=== PATIENT | female | born 1995 | race African-American/Black ===

== ENCOUNTER → 2020-10-30 | Outpatient (CLI) | payer OTHER ==
--- NOTE | 2020-10-30 17:33 | REP ---
INDICATION: DIARRHEA, GENERALIZED ABD PAIN. COMPARISON: None. TECHNIQUE: Supine and erect views of the abdomen, PA view chest. FINDINGS: There is no evidence of free intraperitoneal air. There is no evidence of bowel obstruction. Mild air is scattered throughout the GI tract diffusely. No dilated bowel loops are seen. There is mild diffuse fecal material throughout the colon. A phlebolith is seen on each side of the pelvis. The visualized osseous structures are unremarkable. No infiltrate is seen in either lung. The heart mediastinum are within normal limits. IMPRESSION: Negative abdominal series. <Electronically signed by Benton Neely > 10/30/20 [id number]
[2020-10-30 19:45] LABS: BASO % 0.3 % (0.0-1.0); HEMATOCRIT 41.1 % (36.0-47.0); HEMOGLOBIN 13.2 g/dl (12.0-15.5); LYMPH # 2.4 10^3/uL (1.5-5.0); LYMPH % 17.6 % (24.0-44.0); MEAN CORPUSCULAR HEMOGLOBIN 31.2 pg (27.0-33.0); MEAN CORPUSCULAR HGB CONC 32.1 g/dl (32.0-36.5); MEAN CORPUSCULAR VOLUME 97.2 fl (80.0-96.0); MONO # 0.7 10^3/uL (0.0-0.8); MONO % 5.2 % (2.0-8.0); NEUTROPHILS # 10.4 10^3/uL (1.5-8.5); NEUTROPHILS % 76.6 % (36.0-66.0); PLATELET COUNT, AUTOMATED 377 10^3/uL (150-450); RED BLOOD COUNT 4.23 10^6/uL (4.00-5.40); WHITE BLOOD COUNT 13.6 10^3/uL (4.0-10.0)
[2020-10-30 20:04] LABS: ALBUMIN 4.6 GM/DL (3.2-5.2); ALT/SGPT 63 U/L (12-78); AMYLASE 54 U/L (25-115); BILIRUBIN,TOTAL 0.7 MG/DL (0.2-1.0); BLOOD UREA NITROGEN 12 MG/DL (7-18); C REACTIVE PROTEIN QUANTITATIV 0.88 MG/DL (0.00-0.30); CALCIUM LEVEL 9.7 MG/DL (8.5-10.1); CARBON DIOXIDE LEVEL 27 MEQ/L (21-32); CHLORIDE LEVEL 102 MEQ/L (98-107); CREATININE FOR GFR 0.82 MG/DL (0.55-1.30); GLOMERULAR FILTRATION RATE > 60.0 (>60); GLUCOSE, FASTING 72 MG/DL (70-100); LIPASE 67 U/L (73-393); POTASSIUM SERUM 4.4 MEQ/L (3.5-5.1); SODIUM LEVEL 138 MEQ/L (136-145); TOTAL PROTEIN 8.3 GM/DL (6.4-8.2)
== END ==
LOC: M WUC 15:48
PROVIDERS: ATTEND Physician Assistant
DX: R10.84 Generalized abdominal pain (principal); R19.7 Diarrhea, unspecified